=== PATIENT | male | born 1970 | race African-American/Black ===

== ENCOUNTER 2022-06-30 08:02 | Outpatient (RCR) | payer MEDICARE ==
[~2022-06-30 08:02] MED LIST: ACETAMINOPHEN 1000 MG/100 ML 100 ML IV ONE
== END 2022-07-05 ==
LOC: WCC 08:02
PROVIDERS: ATTEND Podiatrist Foot & Ankle Surgery
DX: E11.621 Type 2 diabetes mellitus with foot ulcer (principal); L97.422 Non-pressure chronic ulcer of left heel and midfoot with fat layer exposed
CPT/HCPCS: 11042 ×2; 15275 ×3; 97597; 99212 ×3; J0131; Q4106; Q4121 ×2

== ENCOUNTER 2022-07-28 08:56 | Outpatient (RCR) | payer MEDICARE ==
[~2022-07-28 08:56] MED LIST changes: -ACETAMINOPHEN 1000 MG/100 ML 100 ML IV ONE; +MINERAL OIL/PETROLAT/GLYCERI 6OZ BTL ONE; +TRYPSIN/BALSAM PERU/CASTOR OIL ONE
== END 2022-08-05 ==
LOC: WCC 08:56
PROVIDERS: ATTEND Podiatrist Foot & Ankle Surgery
DX: E11.621 Type 2 diabetes mellitus with foot ulcer (principal); L97.422 Non-pressure chronic ulcer of left heel and midfoot with fat layer exposed; L97.511 Non-pressure chronic ulcer of other part of right foot limited to breakdown of skin
CPT/HCPCS: 87071; 87075; 87186; 87205

== ENCOUNTER → 2022-07-29 | Outpatient (CLI) | payer MEDICARE | LOC: MRI 08:21 | PROVIDERS: ATTEND Podiatrist Foot & Ankle Surgery | DX: E11.621 Type 2 diabetes mellitus with foot ulcer (principal); L97.422 Non-pressure chronic ulcer of left heel and midfoot with fat layer exposed; L97.511 Non-pressure chronic ulcer of other part of right foot limited to breakdown of skin ==

== ENCOUNTER → 2022-08-10 | Outpatient (CLI) | payer MEDICARE | LOC: RAD 10:46 | PROVIDERS: ATTEND Plastic Surgery | DX: Z01.818 Encounter for other preprocedural examination (principal) | CPT/HCPCS: 71046; 93005 ==

== ENCOUNTER → 2022-08-14 | Outpatient (CLI) | payer MEDICARE ==
[~2022-08-14] MED LIST changes: +AMLODIPINE BESY10 MG PO; +HUMALOG MI100 UNIT/2 SQ; +HYDROCHLOROTHIA25 MG PO; +LABETALOL HCL200 MG PO; +LANTUS 3ML100 UNITS/ SQ; +LISINOPRIL10 MG PO; -MINERAL OIL/PETROLAT/GLYCERI 6OZ BTL ONE; -TRYPSIN/BALSAM PERU/CASTOR OIL ONE
== END ==
LOC: RAD 10:51
PROVIDERS: ATTEND Plastic Surgery
DX: L97.522 Non-pressure chronic ulcer of other part of left foot with fat layer exposed (principal); M79.672 Pain in left foot
CPT/HCPCS: 93306

== ENCOUNTER → 2022-08-18 | Day surgery (SDC) | payer MEDICARE ==
[2022-08-17 13:19] LABS: ANION GAP 15.1 mmol/L (8-16); CALCIUM 9.7 mg/dL (8.4-10.2); CREATININE, SERUM 1.51 mg/dL (0.72-1.25); POTASSIUM 4.1 mmol/L (3.5-5.1)
[~2022-08-18] MED LIST changes: +CEFAZOLIN SODIUM 2 GM ONE; +FENTANYL CITRATE/PF 100MCG/2 ML INJ ONE; +LACTATED RINGER'S 1,000 ML ONE; +LIDOCAINE HCL 2% LOCAL INJ 5 ML SDV VIAL INJ ONE; +ONDANSETRON HCL INJ 2MG/ML 2ML 2 MG/ML VIAL ONE; +POVIDONE IODINE 0.05% 0.05 % ML PO ONE; +PROPOFOL IV EMULSION 10 MG/ML 20 ML VIAL ONE; +SEVOFLURANE INHAL SOLN 250 ML PEN BTL ONE
[2022-08-18 12:50] VITALS: TEMP 98.9
[2022-08-18 14:35] VITALS: BP 132/82; PULSE 83; RESP 16; O2SAT 98
== END | disposition home or self-care (01) ==
LOC: OR 11:01
PROVIDERS: ATTEND Podiatrist Foot & Ankle Surgery
DX: E11.69 Type 2 diabetes mellitus with other specified complication (principal); M86.9 Osteomyelitis, unspecified; E11.621 Type 2 diabetes mellitus with foot ulcer; L97.522 Non-pressure chronic ulcer of other part of left foot with fat layer exposed; E11.40 Type 2 diabetes mellitus with diabetic neuropathy, unspecified; E11.51 Type 2 diabetes mellitus with diabetic peripheral angiopathy without gangrene; I25.10 Atherosclerotic heart disease of native coronary artery without angina pectoris; I10 Essential (primary) hypertension; I25.2 Old myocardial infarction; Z01.810 Encounter for preprocedural cardiovascular examination; Z01.812 Encounter for preprocedural laboratory examination; Z79.4 Long term (current) use of insulin; Z79.899 Other long term (current) drug therapy; Z86.73 Personal history of transient ischemic attack (TIA), and cerebral infarction without residual deficits
CPT/HCPCS: 15004; 15275; 36415 ×2; 80048; 82948; 87071; 87075; 87205; 93005; C1713; J2001; J2405; J2704; J3010; J7121; Q4104

== ENCOUNTER → 2022-08-27 | Outpatient (CLI) | payer MEDICARE ==
[~2022-08-27] MED LIST changes: -CEFAZOLIN SODIUM 2 GM ONE; -FENTANYL CITRATE/PF 100MCG/2 ML INJ ONE; -LACTATED RINGER'S 1,000 ML ONE; -LIDOCAINE HCL 2% LOCAL INJ 5 ML SDV VIAL INJ ONE; -ONDANSETRON HCL INJ 2MG/ML 2ML 2 MG/ML VIAL ONE; -POVIDONE IODINE 0.05% 0.05 % ML PO ONE; -PROPOFOL IV EMULSION 10 MG/ML 20 ML VIAL ONE; -SEVOFLURANE INHAL SOLN 250 ML PEN BTL ONE
== END ==
LOC: DX 09:34
PROVIDERS: ATTEND Internal Medicine Infectious Disease
DX: Z45.2 Encounter for adjustment and management of vascular access device (principal)
CPT/HCPCS: 36569; 71045

== ENCOUNTER 2022-09-01 09:24 | Outpatient (RCR) | payer MEDICARE ==
[~2022-09-01 09:24] MED LIST changes: +BUPIVACAINE HCL 0.5% INJ 30 ML VIAL INJ ONE; +LIDOCAINE/PRILOCAINE 2.5-2.5% KIT ONE; +MINERAL OIL/PETROLAT/GLYCERI 6OZ BTL ONE; +NEOSTIGMINE 1 MG/ML 10ML VIAL ONE; +TRYPSIN/BALSAM PERU/CASTOR OIL ONE; +Vancomycin IV 1 GM VIAL ONE
== END 2022-09-04 ==
LOC: WCC 09:24
PROVIDERS: ATTEND Podiatrist Foot & Ankle Surgery
DX: E11.621 Type 2 diabetes mellitus with foot ulcer (principal); L97.426 Non-pressure chronic ulcer of left heel and midfoot with bone involvement without evidence of necrosis
CPT/HCPCS: 97605 ×6; 99203 ×2; 99213 ×4; J3370; J2710

== ENCOUNTER 2023-01-05 08:02 | Outpatient (RCR) | payer MEDICARE ==
[~2023-01-05 08:02] MED LIST changes: -BUPIVACAINE HCL 0.5% INJ 30 ML VIAL INJ ONE; +CLOPIDOGREL75 MG PO; +COLLAGENASE OINTMENT 30 GM TUBE ONE; -LIDOCAINE/PRILOCAINE 2.5-2.5% KIT ONE; -NEOSTIGMINE 1 MG/ML 10ML VIAL ONE; -Vancomycin IV 1 GM VIAL ONE
== END 2023-01-05 23:05 | disposition home or self-care (01) ==
LOC: WCC 08:02
PROVIDERS: ATTEND Podiatrist Foot & Ankle Surgery
DX: E11.621 Type 2 diabetes mellitus with foot ulcer (principal); M86.172 Other acute osteomyelitis, left ankle and foot; L97.426 Non-pressure chronic ulcer of left heel and midfoot with bone involvement without evidence of necrosis
CPT/HCPCS: 36415 ×19; 82948 ×19; 97602; 97605 ×4; 99212; 99213 ×3; G0277 ×19

== ENCOUNTER 2023-02-02 09:12 | Outpatient (RCR) | payer MEDICARE ==
[~2023-02-02 09:12] MED LIST changes: +BALSAM PERU/CASTOR OIL 60 GM OINT...G. TP ONE; -COLLAGENASE OINTMENT 30 GM TUBE ONE
== END 2023-02-04 ==
LOC: WCC 09:12
PROVIDERS: ATTEND Internal Medicine Infectious Disease
DX: E11.621 Type 2 diabetes mellitus with foot ulcer (principal); M86.172 Other acute osteomyelitis, left ankle and foot; L97.426 Non-pressure chronic ulcer of left heel and midfoot with bone involvement without evidence of necrosis
CPT/HCPCS: 11042; 36415 ×8; 82948 ×8; 99212; 99213 ×9; G0277 ×7

== ENCOUNTER 2023-06-22 07:54 | Outpatient (RCR) | payer MEDICARE ==
[~2023-06-22 07:54] MED LIST changes: -BALSAM PERU/CASTOR OIL 60 GM OINT...G. TP ONE; -MINERAL OIL/PETROLAT/GLYCERI 6OZ BTL ONE
== END 2023-07-06 ==
LOC: WCC 07:54
PROVIDERS: ATTEND Podiatrist Foot & Ankle Surgery
DX: E11.621 Type 2 diabetes mellitus with foot ulcer (principal); L97.426 Non-pressure chronic ulcer of left heel and midfoot with bone involvement without evidence of necrosis; L97.511 Non-pressure chronic ulcer of other part of right foot limited to breakdown of skin

== ENCOUNTER 2023-09-03 08:00 | Outpatient (RCR) | payer MEDICARE ==
[2023-09-03] MEDS ORDERED: TRYPSIN/BALSAM PERU/CASTOR OIL ONE (12:49)
== END 2023-09-03 11:13 | disposition home or self-care (01) ==
LOC: WCC 08:00
PROVIDERS: ATTEND Podiatrist Foot & Ankle Surgery
DX: E11.621 Type 2 diabetes mellitus with foot ulcer (principal); L97.511 Non-pressure chronic ulcer of other part of right foot limited to breakdown of skin

== ENCOUNTER 2023-10-01 10:38 | Outpatient (RCR) | payer MEDICARE ==
[2023-10-01] MEDS ORDERED: MINERAL OIL/PETROLAT/GLYCERI 6OZ BTL ONE (13:24)
[2023-10-07] MEDS ORDERED: ASPIRIN81 MG PO (14:26)
[2023-10-07] MEDS ORDERED: MOUNJARO15 MG/0.5 (14:26)
== END 2023-10-06 ==
LOC: WCC 10:38
PROVIDERS: ATTEND Podiatrist Foot & Ankle Surgery
DX: E11.621 Type 2 diabetes mellitus with foot ulcer (principal); L97.511 Non-pressure chronic ulcer of other part of right foot limited to breakdown of skin
CPT/HCPCS: 87071; 87075; 87186; 87205

== ENCOUNTER → 2023-10-20 | Day surgery (SDC) | payer MEDICARE ==
[2023-10-08 13:13] LABS: BASOPHILS % 0.4 % (0.0-1.0); EOSINOPHILS # (AUTO) 0.3 (0.0-0.4); EOSINOPHILS % 3.1 % (0.0-6.0); HEMATOCRIT 41.5 % (38.2-49.6); HEMOGLOBIN 13.6 g/dL (14.0-18.0); MEAN CORPUSCULAR HEMOGLOBIN 30.2 pg (28-32); MEAN CORPUSCULAR HGB CONC 32.8 g/dL (31-35); MEAN CORPUSCULAR VOLUME 92.2 fL (81-99); MONOCYTES # (AUTO) 0.7 (0.2-0.8); MONOCYTES % 8.2 % (4.4-11.3); NEUTROPHILS # (AUTO) 4.4 (2.1-6.9); NEUTROPHILS % 51.9 % (38.7-80.0); PLATELET COUNT 320 x10e3/uL (140-360); WHITE BLOOD COUNT 8.41 x10e3/uL (4.8-10.8)
[2023-10-08 13:32] LABS: ANION GAP 12.8 mmol/L (8-16); CALCIUM 9.1 mg/dL (8.4-10.2); CREATININE, SERUM 1.18 mg/dL (0.72-1.25); POTASSIUM 3.8 mmol/L (3.5-5.1)
[~2023-10-20] MED LIST changes: +ACETAMINOPHEN 1000 MG/100 ML IV ONE; +ASPIRIN81 MG PO; +FENTANYL CITRATE/PF 100MCG/2 ML INJ ONE; +LACTATED RINGER'S 1,000 ML ONE; +LIDOCAINE HCL 2% LOCAL INJ 5 ML SDV VIAL INJ ONE; +METOCLOPRAMIDE HCL 10 MG/2ML VIAL ONE; +MIDAZOLAM HCL 2 MG/2 ML VIAL ONE; +MOUNJARO15 MG/0.5; +ONDANSETRON HCL INJ 2MG/ML 2ML 2 MG/ML VIAL ONE; +PROPOFOL IV EMULSION 10 MG/ML 20 ML VIAL ONE; +SEVOFLURANE INHAL SOLN 250 ML PEN BTL ONE; -TRYPSIN/BALSAM PERU/CASTOR OIL ONE
[2023-10-20 13:12] VITALS: TEMP 97.1
[2023-10-20 14:20] VITALS: BP 133/80; PULSE 70; RESP 18; O2SAT 99
== END | disposition home or self-care (01) ==
LOC: OR 10-13 10:16
PROVIDERS: ATTEND Podiatrist Foot & Ankle Surgery
DX: E11.69 Type 2 diabetes mellitus with other specified complication (principal); M86.171 Other acute osteomyelitis, right ankle and foot; E11.621 Type 2 diabetes mellitus with foot ulcer; L97.516 Non-pressure chronic ulcer of other part of right foot with bone involvement without evidence of necrosis; E11.40 Type 2 diabetes mellitus with diabetic neuropathy, unspecified; E11.51 Type 2 diabetes mellitus with diabetic peripheral angiopathy without gangrene; I10 Essential (primary) hypertension; I25.10 Atherosclerotic heart disease of native coronary artery without angina pectoris; Z01.810 Encounter for preprocedural cardiovascular examination; Z01.812 Encounter for preprocedural laboratory examination; Z01.818 Encounter for other preprocedural examination; Z79.02 Long term (current) use of antithrombotics/antiplatelets; Z79.82 Long term (current) use of aspirin; Z79.4 Long term (current) use of insulin; Z79.85 Long-term (current) use of injectable non-insulin antidiabetic drugs; Z79.899 Other long term (current) drug therapy; Z95.5 Presence of coronary angioplasty implant and graft
CPT/HCPCS: 20240; 36415; 71046; 80048; 85025; 87071; 87075; 87205; 88305; 88311; 93005; J0131; J0690; J2001; J2250; J2405; J2704; J2765; J3010; J7121; 88304

== ENCOUNTER 2023-11-05 15:22 | Outpatient (RCR) | payer MEDICARE ==
[~2023-11-05 15:22] MED LIST changes: -ACETAMINOPHEN 1000 MG/100 ML IV ONE; +BUPIVACAINE HCL 0.5% INJ 30 ML VIAL INJ ONE; -FENTANYL CITRATE/PF 100MCG/2 ML INJ ONE; -LACTATED RINGER'S 1,000 ML ONE; -LIDOCAINE HCL 2% LOCAL INJ 5 ML SDV VIAL INJ ONE; -METOCLOPRAMIDE HCL 10 MG/2ML VIAL ONE; -MIDAZOLAM HCL 2 MG/2 ML VIAL ONE; +MINERAL OIL/PETROLAT/GLYCERI 6OZ BTL ONE; -ONDANSETRON HCL INJ 2MG/ML 2ML 2 MG/ML VIAL ONE; -PROPOFOL IV EMULSION 10 MG/ML 20 ML VIAL ONE; -SEVOFLURANE INHAL SOLN 250 ML PEN BTL ONE; +TRYPSIN/BALSAM PERU/CASTOR OIL ONE
== END 2023-11-06 ==
LOC: WCC 15:22
PROVIDERS: ATTEND Podiatrist Foot & Ankle Surgery
DX: E11.621 Type 2 diabetes mellitus with foot ulcer (principal); L97.511 Non-pressure chronic ulcer of other part of right foot limited to breakdown of skin; R60.0 Localized edema

== ENCOUNTER 2023-12-03 14:24 | Outpatient (RCR) | payer MEDICARE ==
[~2023-12-03 14:24] MED LIST changes: -BUPIVACAINE HCL 0.5% INJ 30 ML VIAL INJ ONE; -MINERAL OIL/PETROLAT/GLYCERI 6OZ BTL ONE; -TRYPSIN/BALSAM PERU/CASTOR OIL ONE
== END 2023-12-06 ==
LOC: WCC 14:24
PROVIDERS: ATTEND Podiatrist Foot & Ankle Surgery
DX: E11.621 Type 2 diabetes mellitus with foot ulcer (principal); L97.511 Non-pressure chronic ulcer of other part of right foot limited to breakdown of skin; R60.0 Localized edema

== ENCOUNTER 2023-12-24 13:41 | Outpatient (RCR) | payer MEDICARE ==
[~2023-12-24 13:41] MED LIST changes: +TRYPSIN/BALSAM PERU/CASTOR OIL ONE
== END 2024-01-06 ==
LOC: WCC 13:41
PROVIDERS: ATTEND Podiatrist Foot & Ankle Surgery
DX: E11.621 Type 2 diabetes mellitus with foot ulcer (principal); L97.511 Non-pressure chronic ulcer of other part of right foot limited to breakdown of skin; R60.0 Localized edema
CPT/HCPCS: 87071; 87075; 87205